=== PATIENT | female | born 1955 | race African-American/Black ===

== ENCOUNTER 2020-07-10 22:19 | Emergency (ER) | payer OTHER ==
[~2020-07-10] VITALS: Ht 160 cm; Wt 77.1 kg
[2020-07-10] MEDS ORDERED: TOPROL XL50 M1 (22:28)
[2020-07-10] MEDS ORDERED: FORTAMET500 MG (22:28)
[2020-07-11] MEDS ORDERED: KEFLEX500 MG PO (08:44)
[2020-07-11] MEDS ORDERED: MOBIC15 MG PO (08:44)
[2020-07-11] MEDS ORDERED: BENADRYL25 MG PO (08:50)
== END 2020-07-11 10:00 | disposition home or self-care (01) ==
LOC: ER 22:19
DX: N39.0 Urinary tract infection, site not specified (principal); R10.32 Left lower quadrant pain